=== PATIENT | female | born 1975 | race Two or more races ===

== ENCOUNTER 2017-12-16 13:15 | Emergency (ER) | payer MEDICAID ==
[2017-12-16] MEDS ORDERED: Sodium Chloride 0.9% 10 ML Syringe FLUSH PRN (13:32)
[2017-12-16] MEDS ORDERED: Ondansetron 4 MG/2 ML SDV IVPUSH ONE (13:33)
[2017-12-16] MEDS ORDERED: Sodium Chloride 0.9% 1,000 ML IV ONE (13:33)
[2017-12-16] MEDS ORDERED: HYDROmorphone 0.5 MG/0.5 ML Syringe IVPUSH ONE (13:34)
--- NOTE | 2017-12-16 14:05 | EDM.PDOC ---
ED HPI GENERAL MEDICAL PROBLEM - General Chief Complaint: Abdominal Pain Stated Complaint: ABDOMINAL/FLANK PAIN Time Seen by Provider: 12/16/17 13:35 Source of Information: Reports: Patient History Limitations: Reports: No Limitations - History of Present Illness INITIAL COMMENTS - FREE TEXT/NARRATIVE: Patient is a 42-year-old female presents ED complaining of right upper quadrant abdominal pain that radiates into her back with nausea and vomiting along with mild shortness of breath. Pain comes on when she eats. Emesis is green and mucousy. She's had a poor appetite since onset 5 days ago. Symptoms worsen last night. She has felt feverish at times. Has been no diarrhea. She has a history of gallstones diagnosed by ultrasound in [place] this past July. Patient was placed on a wait list to have the surgery. Patient moved to [place] and thus this never occurred. Patient denies any recent sick exposures. Pain to the right upper quadrant has been constant with waxing waning in intensity. She cannot get comfortable today. No history kidney stones present. She has no additional past medical history is currently taking no medications. Patient does smoke cigarettes along with marijuana. Denies any alcohol use. Denies being . Abdomen Pain Score (Numeric/FACES): 10 - Related Data Allergies Allergy/AdvReac Type Severity Reaction Status Date / Time No Known Allergies Allergy Verified 12/16/17 13:23 Home Meds: Home Meds Hydrocodone/Acetaminophen [[place] 5-325 Tablet] 1 each PO Q6H PRN #15 tablet [Rx] Ondansetron [Zofran ODT] 4 mg PO Q6H PRN #15 tab.dis 12/16/17 [Rx] Past Medical History Gastrointestinal History: Reports: GERD - Past Surgical History GI Surgical History: Reports: Appendectomy Social & Family History - Tobacco Use Smoking Status *Q: Current Every Day Smoker Years of Tobacco use: 20 Packs/Tins Daily: 0.7 - Caffeine Use Caffeine Use: Reports: Coffee, Energy Drinks, Soda, Tea - Recreational Drug Use Recreational Drug Use: No ED ROS GENERAL - Review of Systems Review Of Systems: See Below Constitutional: Reports: Fever, Malaise, Decreased Appetite HEENT: Reports: No Symptoms Respiratory: Reports: Shortness of Breath (at times) Cardiovascular: Reports: No Symptoms GI/Abdominal: Reports: Abdominal Pain, Diarrhea (at times), Flatus, Nausea, Vomiting. Denies: Constipation : Reports: No Symptoms Musculoskeletal: Reports: Back Pain (right cva) Skin: Reports: No Symptoms Neurological: Reports: No Symptoms ED EXAM, GI/ABD - Physical Exam Exam: See Below Exam Limited By: No Limitations General Appearance: Alert, WD/WN, No Apparent Distress Ears: Hearing Grossly Normal Nose: Normal Inspection Throat/Mouth: Normal Inspection, Normal Oropharynx, Normal Voice, No Airway Compromise Neck: Normal Inspection, Supple Respiratory/Chest: No Respiratory Distress, Lungs Clear, Normal Breath Sounds, No Accessory Muscle Use, Chest Non-Tender Cardiovascular: Normal Peripheral Pulses, Regular Rate, Rhythm GI/Abdominal Exam: Normal Bowel Sounds, Soft, No Organomegaly, No Distention, Tender, Other (positve patterson sign). No: Rebound Back Exam: Normal Inspection. No: CVA Tenderness (L), CVA Tenderness (R) Extremities: Normal Inspection, Non-Tender, No Pedal Edema Neurological: Alert, Oriented, CN II-XII Intact, Normal Cognition, No Motor/ Sensory Deficits Psychiatric: Normal Affect, Normal Mood Skin Exam: Warm, Dry, Intact, Normal Color Course - Vital Signs Last Recorded V/S: Last Vital Signs Temp 99.3 F 12/16/17 13:27 Pulse 100 12/16/17 13:27 Resp 20 12/16/17 13:27 BP 107/84 12/16/17 13:27 Pulse Ox 97 12/16/17 13:27 - Orders/Labs/Meds Orders: Active Orders 24 hr Category Date Time Status EKG Documentation Completion [RC] STAT Care 12/16/17 13:32 Active Peripheral IV Care [RC] . DIRECTED Care 12/16/17 13:32 Active CULTURE BLOOD [BC] Stat Lab 12/16/17 14:45 Received CULTURE BLOOD [BC] Stat Lab 12/16/17 14:55 Received Blood Culture x2 Reflex Set [OM.PC] Stat Oth 12/16/17 13:43 Ordered Peripheral IV Insertion Adult [OM.PC] Stat Oth 12/16/17 13:32 Ordered Labs: Laboratory Tests 12/16/17 12/16/17 12/16/17 Range/Units 13:50 13:50 13:50 WBC 10.76 H (3.98-10.04) K/mm3 RBC 4.91 (3.98-5.22) M/mm3 Hgb 14.1 (11.2-15.7) gm/L Hct 43.2 (34.1-44.9) % MCV 88.0 (79.4-94.8) fl MCH 28.7 (25.6-32.2) pg MCHC 32.6 (32.2-35.5) g/dl RDW Std Deviation 42.7 (36.4-46.3) fL Plt Count 343 (182-369) K/mm3 MPV 10.7 (9.4-12.3) fl Neut % (Auto) 60.0 (34.0-71.1) % Lymph % (Auto) 28.1 (19.3-51.7) % Towner % (Auto) 11.5 (4.7-12.5) % Eos % (Auto) 0.1 L (0.7-5.8) Baso % (Auto) 0.2 (0.1-1.2) % Neut # (Auto) 6.46 H (1.56-6.13) K/mm3 Lymph # (Auto) 3.02 (1.18-3.74) K/mm3 Towner # (Auto) 1.24 H (0.24-0.36) K/mm3 Eos # (Auto) 0.01 L (0.04-0.36) K/mm3 Baso # (Auto) 0.02 (0.01-0.08) K/mm3 PT (8.0-13.0) SECONDS INR APTT (22-36) SECONDS Sodium 139 (136-145) mEq/L Potassium 3.5 (3.5-5.1) mEq/L Chloride 101 (98-107) mEq/L Carbon Dioxide 23 (21-32) mEq/L Anion Gap 18.5 H (5-15) BUN 16 (7-18) mg/dL Creatinine 0.8 (0.55-1.02) mg/dL Est Cr Clr Drug Dosing 87.51 mL/min Estimated GFR (MDRD) > 60 (>60) mL/min BUN/Creatinine Ratio 20.0 H (14-18) Glucose 107 H (74-106) mg/dL Lactic Acid (0.4-2.0) mmol/L Calcium 10.2 H (8.5-10.1) mg/dL Total Bilirubin 0.6 (0.2-1.0) mg/dL Direct Bilirubin 0.10 (0.0-0.2) mg/dl GGT 22 (5-55) U/L AST 18 (15-37) U/L ALT 22 (14-59) U/L Alkaline Phosphatase 52 (46-116) U/L C-Reactive Protein 0.3 (<1.0) mg/dL Total Protein 9.0 H (6.4-8.2) g/dl Albumin 4.2 (3.4-5.0) g/dl Globulin 4.8 gm/dL Albumin/Globulin Ratio 0.9 L (1-2) Lipase 97 (73-393) U/L HCG, Qual Negative (NEGATIVE) Urine Color (Yellow) Urine Appearance (Clear) Urine pH (5.0-8.0) Ur Specific Kennedy (1.005-1.030) Urine Protein (Negative) Urine Glucose (UA) (Negative) Urine Ketones (Negative) Urine Occult Blood (Negative) Urine Nitrite (Negative) Urine Bilirubin (Negative) Urine Urobilinogen (0.2-1.0) Ur Leukocyte Esterase (Negative) Urine RBC (0-5) /hpf Urine WBC (0-5) /hpf Ur Epithelial Cells (0-5) /hpf Urine Bacteria (FEW) /hpf Urine Mucus (FEW) /hpf Urine Opiates Screen (NEGATIVE) Ur Buprenorphine Scrn (NEGATIVE) Ur Oxycodone Screen (NEGATIVE) Urine Methadone Screen (NEGATIVE) Ur Propoxyphene Screen (NEGATIVE) Ur Barbiturates Screen (NEGATIVE) Ur Tricyclics Screen (NEGATIVE) Ur Phencyclidine Scrn (NEGATIVE) Ur Amphetamine Screen (NEGATIVE) U Methamphetamines Scrn (NEGATIVE) U Benzodiazepines Scrn (NEGATIVE) U Cocaine Metab Screen (NEGATIVE) U Marijuana (THC) Screen (NEGATIVE) 12/16/17 12/16/17 12/16/17 Range/Units 13:50 14:45 15:25 WBC (3.98-10.04) K/mm3 RBC (3.98-5.22) M/mm3 Hgb (11.2-15.7) gm/L Hct (34.1-44.9) % MCV (79.4-94.8) fl MCH (25.6-32.2) pg MCHC (32.2-35.5) g/dl RDW Std Deviation (36.4-46.3) fL Plt Count (182-369) K/mm3 MPV (9.4-12.3) fl Neut % (Auto) (34.0-71.1) % Lymph % (Auto) (19.3-51.7) % Towner % (Auto) (4.7-12.5) % Eos % (Auto) (0.7-5.8) Baso % (Auto) (0.1-1.2) % Neut # (Auto) (1.56-6.13) K/mm3 Lymph # (Auto) (1.18-3.74) K/mm3 Towner # (Auto) (0.24-0.36) K/mm3 Eos # (Auto) (0.04-0.36) K/mm3 Baso # (Auto) (0.01-0.08) K/mm3 PT 10.6 (8.0-13.0) SECONDS INR 0.97 APTT 26 (22-36) SECONDS Sodium (136-145) mEq/L Potassium (3.5-5.1) mEq/L Chloride (98-107) mEq/L Carbon Dioxide (21-32) mEq/L Anion Gap (5-15) BUN (7-18) mg/dL Creatinine (0.55-1.02) mg/dL Est Cr Clr Drug Dosing mL/min Estimated GFR (MDRD) (>60) mL/min BUN/Creatinine Ratio (14-18) Glucose (74-106) mg/dL Lactic Acid 0.7 (0.4-2.0) mmol/L Calcium (8.5-10.1) mg/dL Total Bilirubin (0.2-1.0) mg/dL Direct Bilirubin (0.0-0.2) mg/dl GGT (5-55) U/L AST (15-37) U/L ALT (14-59) U/L Alkaline Phosphatase (46-116) U/L C-Reactive Protein (<1.0) mg/dL Total Protein (6.4-8.2) g/dl Albumin (3.4-5.0) g/dl Globulin gm/dL Albumin/Globulin Ratio (1-2) Lipase (73-393) U/L HCG, Qual (NEGATIVE) Urine Color Dark yellow (Yellow) Urine Appearance Clear (Clear) Urine pH 5.5 (5.0-8.0) Ur Specific Kennedy > or = 1.030 (1.005-1.030) Urine Protein 1+ H (Negative) Urine Glucose (UA) Negative (Negative) Urine Ketones 2+ H (Negative) Urine Occult Blood Negative (Negative) Urine Nitrite Negative (Negative) Urine Bilirubin 1+ H (Negative) Urine Urobilinogen 0.2 (0.2-1.0) Ur Leukocyte Esterase Negative (Negative) Urine RBC Not seen (0-5) /hpf Urine WBC 0-5 (0-5) /hpf Ur Epithelial Cells 0-5 (0-5) /hpf Urine Bacteria Rare (FEW) /hpf Urine Mucus Many H (FEW) /hpf Urine Opiates Screen (NEGATIVE) Ur Buprenorphine Scrn (NEGATIVE) Ur Oxycodone Screen (NEGATIVE) Urine Methadone Screen (NEGATIVE) Ur Propoxyphene Screen (NEGATIVE) Ur Barbiturates Screen (NEGATIVE) Ur Tricyclics Screen (NEGATIVE) Ur Phencyclidine Scrn (NEGATIVE) Ur Amphetamine Screen (NEGATIVE) U Methamphetamines Scrn (NEGATIVE) U Benzodiazepines Scrn (NEGATIVE) U Cocaine Metab Screen (NEGATIVE) U Marijuana (THC) Screen (NEGATIVE) 12/16/17 Range/Units 15:25 WBC (3.98-10.04) K/mm3 RBC (3.98-5.22) M/mm3 Hgb (11.2-15.7) gm/L Hct (34.1-44.9) % MCV (79.4-94.8) fl MCH (25.6-32.2) pg MCHC (32.2-35.5) g/dl RDW Std Deviation (36.4-46.3) fL Plt Count (182-369) K/mm3 MPV (9.4-12.3) fl Neut % (Auto) (34.0-71.1) % Lymph % (Auto) (19.3-51.7) % Towner % (Auto) (4.7-12.5) % Eos % (Auto) (0.7-5.8) Baso % (Auto) (0.1-1.2) % Neut # (Auto) (1.56-6.13) K/mm3 Lymph # (Auto) (1.18-3.74) K/mm3 Towner # (Auto) (0.24-0.36) K/mm3 Eos # (Auto) (0.04-0.36) K/mm3 Baso # (Auto) (0.01-0.08) K/mm3 PT (8.0-13.0) SECONDS INR APTT (22-36) SECONDS Sodium (136-145) mEq/L Potassium (3.5-5.1) mEq/L Chloride (98-107) mEq/L Carbon Dioxide (21-32) mEq/L Anion Gap (5-15) BUN (7-18) mg/dL Creatinine (0.55-1.02) mg/dL Est Cr Clr Drug Dosing mL/min Estimated GFR (MDRD) (>60) mL/min BUN/Creatinine Ratio (14-18) Glucose (74-106) mg/dL Lactic Acid (0.4-2.0) mmol/L Calcium (8.5-10.1) mg/dL Total Bilirubin (0.2-1.0) mg/dL Direct Bilirubin (0.0-0.2) mg/dl GGT (5-55) U/L AST (15-37) U/L ALT (14-59) U/L Alkaline Phosphatase (46-116) U/L C-Reactive Protein (<1.0) mg/dL Total Protein (6.4-8.2) g/dl Albumin (3.4-5.0) g/dl Globulin gm/dL Albumin/Globulin Ratio (1-2) Lipase (73-393) U/L HCG, Qual (NEGATIVE) Urine Color (Yellow) Urine Appearance (Clear) Urine pH (5.0-8.0) Ur Specific Kennedy (1.005-1.030) Urine Protein (Negative) Urine Glucose (UA) (Negative) Urine Ketones (Negative) Urine Occult Blood (Negative) Urine Nitrite (Negative) Urine Bilirubin (Negative) Urine Urobilinogen (0.2-1.0) Ur Leukocyte Esterase (Negative) Urine RBC (0-5) /hpf Urine WBC (0-5) /hpf Ur Epithelial Cells (0-5) /hpf Urine Bacteria (FEW) /hpf Urine Mucus (FEW) /hpf Urine Opiates Screen Presumptive positive H (NEGATIVE) Ur Buprenorphine Scrn Negative (NEGATIVE) Ur Oxycodone Screen Negative (NEGATIVE) Urine Methadone Screen Negative (NEGATIVE) Ur Propoxyphene Screen Negative (NEGATIVE) Ur Barbiturates Screen Negative (NEGATIVE) Ur Tricyclics Screen Negative (NEGATIVE) Ur Phencyclidine Scrn Negative (NEGATIVE) Ur Amphetamine Screen Negative (NEGATIVE) U Methamphetamines Scrn Negative (NEGATIVE) U Benzodiazepines Scrn Negative (NEGATIVE) U Cocaine Metab Screen Negative (NEGATIVE) U Marijuana (THC) Screen Presumptive positive H (NEGATIVE) Meds: Medications Discontinued Medications Generic Name Dose Route Start Last Admin Trade Name Freq PRN Reason Stop Dose Admin Hydromorphone HCl 0.5 mg 12/16/17 13:34 12/16/17 13:50 Dilaudid IVPUSH 12/16/17 13:35 0.5 mg ONETIME ONE Administration Sodium Chloride 1,000 mls @ 999 mls/hr 12/16/17 13:33 12/16/17 13:49 Normal Saline IV 12/16/17 14:33 999 mls/hr ONETIME ONE Administration Ondansetron HCl 4 mg 12/16/17 13:33 12/16/17 13:49 Zofran IVPUSH 12/16/17 13:34 4 mg ONETIME ONE Administration Ondansetron HCl 4 mg 12/16/17 15:27 12/16/17 15:32 Zofran Odt PO 12/16/17 15:28 4 mg ONETIME ONE Administration Sodium Chloride 10 ml 12/16/17 13:32 12/16/17 13:49 Saline Flush FLUSH 10 ml ASDIRECTED PRN Administration Keep Vein Open - Re-Assessments/Exams Free Text/Narrative Re-Assessment/Exam: Order peripheral IV with normal saline, Dilaudid 0.5 mg IVP, and Zofran 4 mg IVP. Initial labs and studies include CBC, chem 14, CRP, direct bilirubin, GGT, hCG, coag studies, lactic acid, lipase, urine drug tox, UA, EKG, chest x-ray, 2 view of the abdomen, and blood cultures 2. Xray of the chest and abdomen did not reveal any acute findings. Final interpretation is pending. Reviewed with Dr. Gómez. EKG sinus rhythm rate of [address] changes noted. Labs reviewed: White blood cell count mildly elevated 10.76 with no neutrophilia. Hemoglobin 14.1, platelet count 343, chemistry panel is essentially normal. CRP 0.3. LFTs are within normal limits. GTT and draped bilirubin as well as total bilirubin within normal limits. Lipase 97. HCG negative. UA and urine drug tox pending. Lactic acid 0.7. [address] Pizarro [employer] General Surgeon. He will see the patient 12/20. We are attempting to schedule an appt. Once UA sample has been provided will discharge patient home with instructions. Will notify if any abnormal results present. UA negative for infection. Urine drug tox positive for opiates and THC. Departure - Departure Time of Disposition: 15:16 Disposition: Home, Self-Care 01 Condition: Good Clinical Impression: Cholecystitis Abdominal pain Qualifiers: Abdominal location: right upper quadrant Qualified Code(s): R10.11 - Right upper quadrant pain - Discharge Information Prescriptions: Hydrocodone/Acetaminophen [[place] 5-325 Tablet] 1 each PO Q6H PRN #15 tablet PRN Reason: Pain (Severe 7-10) Ondansetron [Zofran ODT] 4 mg PO Q6H PRN #15 tab.dis PRN Reason: Nausea Instructions: Nausea and Vomiting, Adult, [id number], Abdominal Pain, Adult, [id number], Pain Medicine Instructions, [id number] Referrals: Aj Pizarro MD [Physician] - Forms: ED Department Discharge, ED Return to Work/School Form Additional Instructions: As discussed will have you follow-up with Dr. Pizarro on-call general surgeon this coming Wednesday for further evaluation for gallbladder removal. He had a large gallstone with a slightly prominent, bile duct. History and examination concerning for acute cholecystitis. Treatment at this point will be a low residue diet. Refrain from fatty foods and green leafy foods or other foods that are causing aggravation. Utilize Zofran 4 mg ODT every 6 hours as needed for nausea and vomiting. For severe pain take [place] one tab every 6 hours as needed. No driving this evening since receiving a sedative medication while in the ED. No driving while taking the [place]. Return to the ED if you develop any new or worsening symptoms. Appointment with Dr. Pizarro is scheduled for Wednesday12/20/2017 at 1:45 p.m. We have discharged you from the E.D without UA results. If results determine further treatment or testing is required you will be notified. - My Orders Last 24 Hours: My Active Orders 12/16/17 13:32 EKG Documentation Completion [RC] STAT Peripheral IV Care [RC] . DIRECTED Peripheral IV Insertion Adult [OM.PC] Stat 12/16/17 13:43 Blood Culture x2 Reflex Set [OM.PC] Stat 12/16/17 14:45 CULTURE BLOOD [BC] Stat 12/16/17 14:55 CULTURE BLOOD [BC] Stat - Assessment/Plan Last 24 Hours: My Active Orders 12/16/17 13:32 EKG Documentation Completion [RC] STAT Peripheral IV Care [RC] . DIRECTED Peripheral IV Insertion Adult [OM.PC] Stat 12/16/17 13:43 Blood Culture x2 Reflex Set [OM.PC] Stat 12/16/17 14:45 CULTURE BLOOD [BC] Stat 12/16/17 14:55 CULTURE BLOOD [BC] Stat
--- NOTE | 2017-12-16 14:16 | CR ---
Abdominal series: Supine and upright views of the abdomen were obtained as well as frontal view of the chest. Comparison: No prior study. Heart size and mediastinum are normal. Lungs are clear. Bowel gas pattern appears normal. Surgical clips are seen within the pelvis. No free air seen. Bony structures are within normal limits for the patient's age. Impression: 1. Nothing acute seen on frontal checks x-ray or on 2 view abdominal x-ray. Diagnostic code #2
--- NOTE | 2017-12-16 15:06 | US ---
Limited abdominal ultrasound: Multiple real-time images were obtained. Compare no prior abdominal imaging. Findings: Liver shows no focal parenchymal abnormality. Large gallstone is seen within the gallbladder measuring 3.3 cm. No gallbladder wall thickening is seen. Common bile duct slightly prominent at 7.4 mm but no intraluminal defects are seen within the visualized CBD. Pancreas is within normal limits. Inferior vena cava is patent. Portal vein shows normal hepatopedal flow. Right kidney shows no hydronephrosis or mass with length of 9.8 cm. Impression: 1. Large gallstone. 2. Slightly prominent common bile duct is 7.4 mm of uncertain significance. 3. Other portions of the right upper quadrant abdominal ultrasound are unremarkable. Diagnostic code #3
[2017-12-16] MEDS ORDERED: Ondansetron 4 MG Tab.DIS PO ONE (15:27)
== END 2017-12-16 15:52 | disposition home or self-care (01) ==
LOC: JD.ED 13:15
DX: K80.10 Calculus of gallbladder with chronic cholecystitis without obstruction (principal); F17.210 Nicotine dependence, cigarettes, uncomplicated
CPT/HCPCS: 36415; 74022; 76705; 80053; 80306; 81001; 82248; 82977; 83605; 83690; 84703; 85025; 85610; 85730; 86140; 87040; 93005; 96361; 96374; 96375; 99285; A9270; J1170; J2405; J7040; J7050; 93010; 99284-25

== ENCOUNTER 2017-12-21 18:42 | Inpatient (IN) | payer MEDICAID ==
[2017-12-21] MEDS ORDERED: HYDROmorphone 1 MG/ML Syringe IVPUSH ONE (19:08)
[2017-12-21] MEDS ORDERED: Ondansetron 4 MG/2 ML SDV IVPUSH ONE (19:08)
--- NOTE | 2017-12-21 19:16 | EDM.PDOC ---
ED HPI GENERAL MEDICAL PROBLEM - General Chief Complaint: Abdominal Pain Stated Complaint: nausea abdominal pain Time Seen by Provider: 12/21/17 18:52 Source of Information: Reports: Patient, Old Records History Limitations: Reports: No Limitations - History of Present Illness INITIAL COMMENTS - FREE TEXT/NARRATIVE: Medical records indicate that the patient was seen in this ED on 12/16/2017 with a complaint of right upper quadrant abdominal pain that radiated into her back, along with nausea, vomiting, and shortness of breath. The pain would come on whenever she ate. At the time, she indicates that she had a history of gallstones, diagnosed by an ultrasound in [place] this past July 2017. She stated that she had been placed on a wait list at surgery, but then moved to [place]. Workup in the ED on 12/16/2017 include a CBC, CMP, CRP, lactic acid level, coags , 2 sets of blood cultures, urinalysis, urine test, urine drug screen , radiographs of the chest and abdomen, an ultrasound of the right upper quadrant, and an ECG. The ultrasound demonstrated a 3.3 cm gallstone within the gallbladder, but no gallbladder wall thickening. The common bile duct was slightly prominent at 7.4 mm, of uncertain significance. The patient's urine drug screen was positive for opiates and marijuana. The remainder of her workup was unremarkable. She was discharged home with prescriptions for [place] and Zofran. The patient then followed up with Dr. Pizarro yesterday, 12/20/2017. According to the patient, he offered to take the patient to the operating room tomorrow, however, the patient refused, stating that she had orientation at a new job. Cholecystectomy was then scheduled for this coming 12/24/2017. The patient now returns to the ED stating that she redeveloped right upper quadrant abdominal pain shortly after eating lunch today, then developed nausea and vomiting about 2 hours later. The patient is unable to describe the character of the pain. It is not modifiable. She states that the emesis is unremitting despite taking Zofran, and her pain is uncontrolled, because she cannot hold down the [place]. Right Upper Abdominal Pain Score (Numeric/FACES): 10 - Related Data Allergies Allergy/AdvReac Type Severity Reaction Status Date / Time No Known Allergies Allergy Verified 12/16/17 13:23 Home Meds: Home Meds Hydrocodone/Acetaminophen [[place] 5-325 Tablet] 1 each PO Q6H PRN #15 tablet [Rx] Ondansetron [Zofran ODT] 4 mg PO Q6H PRN #15 tab.dis 12/16/17 [Rx] Past Medical History Gastrointestinal History: Reports: Cholelithiasis - Past Surgical History HEENT Surgical History: Reports: Oral Surgery ([place] teeth extraction) GI Surgical History: Reports: Appendectomy Female Surgical History: Reports: Tubal Ligation Social & Family History - Tobacco Use Smoking Status *Q: Current Every Day Smoker Years of Tobacco use: 25 Packs/Tins Daily: 1 - Caffeine Use Caffeine Use: Reports: Coffee, Soda - Alcohol Use Alcohol Use History: Yes Alcohol Use Frequency: Socially - Recreational Drug Use Recreational Drug Use: Yes Drug Use in Last 12 Months: Yes Recreational Drug Type: Reports: Marijuana/Hashish (occasionally) - Living Situation & Occupation Living situation: Reports: , with Spouse, with Family (2 kids) Occupation: Employed ([employer]) ED ROS GENERAL - Review of Systems Review Of Systems: ROS reveals no pertinent complaints other than HPI. ED EXAM, GI/ABD - Physical Exam Exam: See Below Exam Limited By: No Limitations General Appearance: Alert, WD/WN, Moderate Distress (Frequent retching, complaining of pain) Eyes: Bilateral: Normal Appearance, EOMI Ears: Normal External Exam, Hearing Grossly Normal Nose: Normal Inspection, No Blood Throat/Mouth: Normal Inspection, Normal Lips, Normal Voice, No Airway Compromise Head: Atraumatic, Normocephalic Neck: Normal Inspection, Full Range of Motion Respiratory/Chest: No Respiratory Distress, Lungs Clear, Normal Breath Sounds, No Accessory Muscle Use Cardiovascular: Normal Peripheral Pulses, Regular Rate, Rhythm, No Gallop, No JVD, No Murmur, No Rub GI/Abdominal Exam: Normal Bowel Sounds, Soft, No Organomegaly, No Distention, No Abnormal Bruit, No Mass, Pelvis Stable, Tender (RUQ only. Nontender elsewhere , although palpation on the left side of the abdomen induces some pain to the right upper quadrant. Ramos's sign is negative.) (Female) Exam: Deferred Rectal (Female) Exam: Deferred Back Exam: Normal Inspection, Full Range of Motion. No: CVA Tenderness (L), CVA Tenderness (R) Extremities: Normal Inspection, Normal Range of Motion, No Pedal Edema, Normal Capillary Refill Neurological: Alert, Oriented, Normal Cognition, No Motor/Sensory Deficits Psychiatric: Normal Affect Skin Exam: Warm, Dry, Intact, Normal Color, No Rash Course - Vital Signs Last Recorded V/S: Last Vital Signs Temp 36.1 C 12/21/17 20:37 Pulse 79 12/21/17 20:37 Resp 12 12/21/17 20:37 BP 137/90 12/21/17 20:37 Pulse Ox 100 12/21/17 20:37 - Orders/Labs/Meds Orders: Active Orders 24 hr Category Date Time Status Sodium Chloride 0.9% [Normal Saline] 1,000 ml Med 12/21/17 19:15 Active IV ASDIRECTED Medication Orders Hydromorphone HCl (Dilaudid) 1 mg IVPUSH Q1H PRN PRN Reason: Pain Last Admin: 12/21/17 20:47 Dose: 1 mg Sodium Chloride (Normal Saline) 1,000 mls @ 150 mls/hr IV ASDIRECTED CARLA Last Admin: 12/21/17 19:21 Dose: 150 mls/hr Labs: Laboratory Tests 12/21/17 12/21/17 Range/Units 19:10 19:10 WBC 10.07 H (3.98-10.04) K/mm3 RBC 4.54 (3.98-5.22) M/mm3 Hgb 13.3 (11.2-15.7) gm/L Hct 40.3 (34.1-44.9) % MCV 88.8 (79.4-94.8) fl MCH 29.3 (25.6-32.2) pg MCHC 33.0 (32.2-35.5) g/dl RDW Std Deviation 42.4 (36.4-46.3) fL Plt Count 325 (182-369) K/mm3 MPV 10.5 (9.4-12.3) fl Neutrophils % (Manual) 70 H (40-60) % Band Neutrophils % 0 (0-10) % Lymphocytes % (Manual) 30 (20-40) % Atypical Lymphs % 0 % Monocytes % (Manual) 0 L (2-10) % Eosinophils % (Manual) 0 L (0.7-5.8) % Basophils % (Manual) 0 L (0.1-1.2) Platelet Estimate Adequate RBC Morph Comment Normal Sodium 141 (136-145) mEq/L Potassium 3.7 (3.5-5.1) mEq/L Chloride 103 (98-107) mEq/L Carbon Dioxide 26 (21-32) mEq/L Anion Gap 15.7 H (5-15) BUN 7 (7-18) mg/dL Creatinine 0.9 (0.55-1.02) mg/dL Est Cr Clr Drug Dosing 77.79 mL/min Estimated GFR (MDRD) > 60 (>60) mL/min BUN/Creatinine Ratio 7.8 L (14-18) Glucose 112 H (74-106) mg/dL Calcium 9.4 (8.5-10.1) mg/dL Total Bilirubin 0.4 (0.2-1.0) mg/dL AST 17 (15-37) U/L ALT 21 (14-59) U/L Alkaline Phosphatase 50 (46-116) U/L Total Protein 8.4 H (6.4-8.2) g/dl Albumin 4.0 (3.4-5.0) g/dl Globulin 4.4 gm/dL Albumin/Globulin Ratio 0.9 L (1-2) Meds: Medications Generic Name Dose Route Start Last Admin Trade Name Freq PRN Reason Stop Dose Admin Hydromorphone HCl 1 mg 12/21/17 20:40 12/21/17 20:47 Dilaudid IVPUSH 1 mg Q1H PRN Administration Pain Sodium Chloride 1,000 mls @ 150 mls/hr 12/21/17 19:15 12/21/17 19:21 Normal Saline IV 150 mls/hr ASDIRECTED CARLA Administration Discontinued Medications Generic Name Dose Route Start Last Admin Trade Name Freq PRN Reason Stop Dose Admin Hydromorphone HCl 1 mg 12/21/17 19:08 12/21/17 19:16 Dilaudid IVPUSH 12/21/17 19:09 1 mg ONETIME ONE Administration Hydromorphone HCl Confirm 12/21/17 20:39 Dilaudid Administered 12/21/17 20:40 Dose 1 mg .ROUTE .STK-MED ONE Ondansetron HCl 4 mg 12/21/17 19:08 01/23/18 19:15 Zofran IVPUSH 12/21/17 19:09 4 mg ONETIME ONE Administration - Re-Assessments/Exams Free Text/Narrative Re-Assessment/Exam: 12/21/17 19:[address] Pizarro at 19:08. I proposed that we get the patient's pain and emesis under control and admit her, so that she can be put on the operative schedule. Dr. Pizarro agrees. I am going to order a CBC and CMP, just to make sure that nothing has gone askew since she was last here on 12/16/2017 - Dr. Pizarro said that he does not need any other labs. Departure - Departure Time of Disposition: 19:12 Disposition: Admitted As Inpatient 68 Condition: Fair Clinical Impression: Acute cholecystitis, Nausea & vomiting - Discharge Information - My Orders Last 24 Hours: My Active Orders 12/21/17 19:15 Sodium Chloride 0.9% [Normal Saline] 1,000 ml IV ASDIRECTED - Assessment/Plan Last 24 Hours: My Active Orders 12/21/17 19:15 Sodium Chloride 0.9% [Normal Saline] 1,000 ml IV ASDIRECTED
[2017-12-21] MEDS: Sodium Chloride 0.9% 1,000 ML IV SCH (19:21)
[2017-12-21] MEDS ORDERED: HYDROmorphone 1 MG/ML Syringe ONE (20:39)
[2017-12-21] MEDS: HYDROmorphone 1 MG/ML Syringe IVPUSH PRN ×3 (20:47→23:52)
[2017-12-21] MEDS: Ondansetron 4 MG/2 ML SDV IVPUSH PRN (23:52)
[2017-12-22] MEDS: Sodium Chloride 0.9% 1,000 ML IV SCH ×2 (06:04→09:21)
[2017-12-22] MEDS: HYDROmorphone 1 MG/ML Syringe IVPUSH PRN ×6 (06:05→10:09)
[2017-12-22] MEDS: Ondansetron 4 MG/2 ML SDV IVPUSH PRN ×2 (06:09→10:05)
[2017-12-22] MEDS ORDERED: Nicotine 21 MG/24 Hr Patch TRDERM SCH (09:00)
--- NOTE | 2017-12-22 09:43 | PCM.PREANE ---
Preanesthetic Assessment - Anesthesia/Transfusion/Family Hx Anesthesia History: Prior Anesthesia Without Reaction Family History of Anesthesia Reaction: No Transfusion History: No Prior Transfusion(s) - Review of Systems General: Fever (a few days ago with episode) Pulmonary: Shortness of Breath (from throwing up when has episode) Cardiovascular: No Symptoms Gastrointestinal: Abdominal Pain (upper right), Nausea, Vomiting Neurological: No Symptoms Other: Reports: Anxiety - Physical Assessment NPO Status Date: 12/21/17 NPO Status Time: 12:00 Pulse: 64 O2 Sat by Pulse Oximetry: 97 Respiratory Rate: 16 Blood Pressure: 108/81 Temperature: 97.9 F Vital Signs: Last Vital Signs Temp 97.9 F 12/22/17 07:47 Pulse 64 12/22/17 07:47 Resp 16 12/22/17 07:47 BP 108/81 12/22/17 07:47 Pulse Ox 97 12/22/17 07:47 Height: 5 ft 6 in Weight: 67.495 kg ASA Class: 2 Mental Status: Alert & Oriented x3 Airway Class: Mallampati = 2 Dentition: Reports: Normal Dentition Thyro-Mental Finger Breadths: 3 Mouth Opening Finger Breadths: 3 ROM/Head Extension: Full Lungs: Clear to Auscultation, Normal Respiratory Effort Cardiovascular: Regular Rate, Regular Rhythm - Lab Values: Laboratory Last Values WBC 10.07 K/mm3 (3.98-10.04) H 12/21/17 19:10 RBC 4.54 M/mm3 (3.98-5.22) 12/21/17 19:10 Hgb 13.3 gm/L (11.2-15.7) 12/21/17 19:10 Hct 40.3 % (34.1-44.9) 12/21/17 19:10 MCV 88.8 fl (79.4-94.8) 12/21/17 19:10 MCH 29.3 pg (25.6-32.2) 12/21/17 19:10 MCHC 33.0 g/dl (32.2-35.5) 12/21/17 19:10 RDW Std Deviation 42.4 fL (36.4-46.3) 12/21/17 19:10 Plt Count 325 K/mm3 (182-369) 12/21/17 19:10 MPV 10.5 fl (9.4-12.3) 12/21/17 19:10 Neutrophils % (Manual) 70 % (40-60) H 12/21/17 19:10 Band Neutrophils % 0 % (0-10) 12/21/17 19:10 Lymphocytes % (Manual) 30 % (20-40) 12/21/17 19:10 Atypical Lymphs % 0 % 12/21/17 19:10 Monocytes % (Manual) 0 % (2-10) L 12/21/17 19:10 Eosinophils % (Manual) 0 % (0.7-5.8) L 12/21/17 19:10 Basophils % (Manual) 0 (0.1-1.2) L 12/21/17 19:10 Platelet Estimate Adequate 12/21/17 19:10 RBC Morph Comment Normal 12/21/17 19:10 Sodium 141 mEq/L (136-145) 12/21/17 19:10 Potassium 3.7 mEq/L (3.5-5.1) 12/21/17 19:10 Chloride 103 mEq/L (98-107) 12/21/17 19:10 Carbon Dioxide 26 mEq/L (21-32) 12/21/17 19:10 Anion Gap 15.7 (5-15) H 12/21/17 19:10 BUN 7 mg/dL (7-18) 12/21/17 19:10 Creatinine 0.9 mg/dL (0.55-1.02) 12/21/17 19:10 Est Cr Clr Drug Dosing 77.79 mL/min 12/21/17 19:10 Estimated GFR (MDRD) > 60 mL/min (>60) 12/21/17 19:10 BUN/Creatinine Ratio 7.8 (14-18) L 12/21/17 19:10 Glucose 112 mg/dL (74-106) H 12/21/17 19:10 Calcium 9.4 mg/dL (8.5-10.1) 12/21/17 19:10 Total Bilirubin 0.4 mg/dL (0.2-1.0) 12/21/17 19:10 AST 17 U/L (15-37) 12/21/17 19:10 ALT 21 U/L (14-59) 12/21/17 19:10 Alkaline Phosphatase 50 U/L (46-116) 12/21/17 19:10 Total Protein 8.4 g/dl (6.4-8.2) H 12/21/17 19:10 Albumin 4.0 g/dl (3.4-5.0) 12/21/17 19:10 Globulin 4.4 gm/dL 12/21/17 19:10 Albumin/Globulin Ratio 0.9 (1-2) L 12/21/17 19:10 Patient states she is not as she has a tubal-refuses test at this time. - Allergies Allergies/Adverse Reactions: Allergies Allergy/AdvReac Type Severity Reaction Status Date / Time No Known Allergies Allergy Verified 12/16/17 13:23 - Blood Blood Available: No - Acknowledgements Anesthesia Type Planned: General Anesthesia Pt an Appropriate Candidate for the Planned Anesthesia: Yes Alternatives and Risks of Anesthesia Discussed w Pt/Guardian: Yes Pt/Guardian Understands and Agrees with Anesthesia Plan: Yes PreAnesthesia Questionnaire Cardiovascular History: Reports: None Respiratory History: Reports: None Gastrointestinal History: Reports: Cholelithiasis Oncologic (Cancer) History: Reports: None - Past Surgical History HEENT Surgical History: Reports: Oral Surgery ([place] teeth extraction) GI Surgical History: Reports: Appendectomy Female Surgical History: Reports: Tubal Ligation - SUBSTANCE USE Smoking Status *Q: Current Every Day Smoker Tobacco Use Within Last Twelve Months: Cigarettes Second Hand Smoke Exposure: Yes Days Per Week of Alcohol Use: 1 (holidays) Recreational Drug Use History: Yes Recreational Drug Type: Reports: Marijuana/Hashish (last used occasionally) - HOME MEDS Home Medications: Home Meds Hydrocodone/Acetaminophen [[place] 5-325 Tablet] 1 each PO Q6H PRN #15 tablet [Rx] Ondansetron [Zofran ODT] 4 mg PO Q6H PRN #15 tab.dis 12/16/17 [Rx] - CURRENT (IN HOUSE) MEDS Current Meds: Current Medications Hydromorphone HCl (Dilaudid) 1 mg IVPUSH Q1H PRN PRN Reason: Pain Last Admin: 12/22/17 09:07 Dose: 1 mg Sodium Chloride (Normal Saline) 1,000 mls @ 150 mls/hr IV ASDIRECTED CARLA Last Admin: 12/22/17 09:21 Dose: 150 mls/hr Miscellaneous Information (Remove Patch) 0 ea TRDERM DAILY CARLA Nicotine (Habitrol) 21 mg TRDERM DAILY CARLA Last Admin: 12/22/17 09:08 Dose: 21 mg Ondansetron HCl (Zofran) 4 mg IVPUSH Q4HR PRN PRN Reason: Nausea/Vomiting Last Admin: 12/22/17 06:09 Dose: 4 mg Discontinued Medications Hydromorphone HCl (Dilaudid) 1 mg IVPUSH ONETIME ONE Stop: 12/21/17 19:09 Last Admin: 12/21/17 19:16 Dose: 1 mg Hydromorphone HCl (Dilaudid) Confirm Administered Dose 1 mg .ROUTE .STK-MED ONE Stop: 12/21/17 20:40 Last Admin: 12/21/17 21:54 Dose: Not Given Ondansetron HCl (Zofran) 4 mg IVPUSH ONETIME ONE Stop: 12/21/17 19:09 Last Admin: 12/21/17 19:15 Dose: 4 mg
[2017-12-22] MEDS ORDERED: Iopamidol 612 MG/ML 50 ML SDV ONE (10:43)
[2017-12-22] MEDS ORDERED: Sodium Chloride 0.9% 50 ML SDV ONE (10:44)
[2017-12-22] MEDS ORDERED: Bupivacaine 0.5% 30 ML SDV ONE (10:44)
[2017-12-22] MEDS ORDERED: Propofol 200 MG/20 ML SDV ONE (13:16)
[2017-12-22] MEDS ORDERED: Rocuronium 50 MG/5 ML Vial ONE (13:16)
[2017-12-22] MEDS ORDERED: Lidocaine 1% 4 ML ONE (13:16)
[2017-12-22] MEDS ORDERED: Ondansetron 4 MG/2 ML SDV ONE (13:16)
[2017-12-22] MEDS ORDERED: Midazolam 1 MG/ML 2 ML SDV ONE (13:16)
[2017-12-22] MEDS ORDERED: Dexamethasone 4 MG/ML 5 ML MDV ONE (13:16)
[2017-12-22] MEDS ORDERED: fentaNYL 250 MCG/5 ML SDV ONE (13:16)
[2017-12-22] MEDS ORDERED: Lactated Ringers 1,000 ML ONE ×2 (13:19→15:26)
[2017-12-22] MEDS ORDERED: ceFAZolin 1 GM Vial ONE (13:54)
[2017-12-22] MEDS ORDERED: Ketamine 500 mg/10 ML MDV ONE (13:56)
[2017-12-22] MEDS ORDERED: HYDROmorphone 1 MG/ML Syringe ONE (13:57)
[2017-12-22] MEDS ORDERED: Meperidine PF 50 MG/ML Syringe IVPUSH PRN (15:02)
[2017-12-22] MEDS ORDERED: fentaNYL 100 MCG/2 ML SDV IVPUSH PRN (15:02)
[2017-12-22] MEDS ORDERED: Ondansetron 4 MG/2 ML SDV IVPUSH PRN ×3 (15:02→17:10)
--- NOTE | 2017-12-22 15:16 | CR ---
Operative cholangiogram Multiple fluoroscopic spot views were obtained utilizing C-arm device. Opacification CHD and CBD are noted. Contrast extends into the duodenum. No filling defects are seen to indicate retained stone. Impression: 1. No abnormality is seen on operative cholangiogram study. Diagnostic code #1
[2017-12-22] MEDS ORDERED: Neostigmine Methylsulfate 1 MG/ML 5 ML Syringe ONE (15:28)
[2017-12-22] MEDS ORDERED: Ketorolac 30 MG/ML SDV ONE (15:53)
[2017-12-22] MEDS ORDERED: Meperidine PF 50 MG/ML Syringe ONE (15:53)
[2017-12-22] MEDS ORDERED: Metoclopramide 10 MG/2 ML SDV ONE (15:53)
--- NOTE | 2017-12-22 15:54 | PCM.OPNOTE ---
- General Post-Op/Procedure Note Date of Surgery/Procedure: 12/22/17 Operative Procedure(s): lap nhi with IOC Pre Op Diagnosis: cholecystitis/cholelithiasis Post-Op Diagnosis: Same Anesthesia Technique: General ET Tube Primary Surgeon: Aj Pizarro EBL in mLs: 50 Complications: None Condition: Good Free Text/Narrative:: Intake & Output 12/21/17 12/22/17 12/22/17 23:59 07:59 15:59 Intake Total 0 Balance 0
--- NOTE | 2017-12-22 16:03 | PCM.POSTAN ---
POST ANESTHESIA ASSESSMENT - MENTAL STATUS Mental Status: Alert, Oriented - VITAL SIGNS Pulse Rate: 114 SaO2: 96 Resp Rate: 16 Blood Pressure: 118/84 Temperature: 97.7 F - RESPIRATORY Respiratory Status: Respiratory Rate WNL, Airway Patent, O2 Saturation Stable, Supplemental Oxygen - CARDIOVASCULAR CV Status: Pulse Rate WNL, Blood Pressure Stable - GASTROINTESTINAL GI Status: No Symptoms - PAIN Pain Score: 5 - POST OP HYDRATION Hydration Status: Adequate & Stable - OBSERVATIONS Free Text/Narrative:: has the shakes- demerol IV given.
[2017-12-22] MEDS ORDERED: Ketorolac 30 MG/ML SDV IVPUSH PRN (16:04)
[2017-12-22] MEDS ORDERED: Acetaminophen/HYDROcodone 325-5 MG Tab PO PRN (16:05)
[2017-12-22] MEDS ORDERED: Lactated Ringers 1,000 ML IV SCH (17:10)
[2017-12-22] MEDS: Acetaminophen/HYDROcodone 325-5 MG Tab PO PRN (18:48)
[2017-12-22] MEDS: Ketorolac 30 MG/ML SDV IVPUSH PRN (18:49)
[2017-12-23] MEDS: Ketorolac 30 MG/ML SDV IVPUSH PRN ×2 (00:11→06:11)
[2017-12-23] MEDS: Acetaminophen/HYDROcodone 325-5 MG Tab PO PRN ×2 (01:53→09:16)
--- NOTE | 2017-12-23 06:43 | OR ---
DATE OF OPERATION: 12/22/2017 SURGEON: Aj Pizarro MD PREOPERATIVE DIAGNOSIS: Cholecystitis, cholelithiasis. POSTOPERATIVE DIAGNOSIS: Cholecystitis, cholelithiasis. OPERATION PERFORMED: Laparoscopic cholecystectomy, intraoperative cholangiogram, and lysis of adhesions. FINDINGS: Acutely distended gallbladder, hydrops of the gallbladder in fact with obstruction of the cystic duct with large stone and adhesions around the fundus and a very thickened wall gallbladder. There was also adhesions around the trocar site at the umbilicus, which were removed and adhesions up around the gallbladder. It took about 15 minutes to remove adhesions. ANESTHESIA: General anesthetic. ESTIMATED BLOOD LOSS: 50 mL. DESCRIPTION OF PROCEDURE: The patient was taken to the operating room and placed in a supine position, connected to monitoring equipment, given a general anesthetic and intubated. SCDs were placed. Antibiotics were given. The abdomen was clipped and prepped with chlorhexidine prep with alcohol and draped off in a sterile fashion. Incision was made just below the umbilicus using a 5 mm Optiport. Abdominal cavity was entered and pneumoperitoneum established. Camera was inserted showing that we were in some adhesions, but no small bowel was noted in the area. A 5 mm trocar was placed above that and one could see the adhesions and adhesions near the gallbladder of the omentum. A 10 mm trocar was then placed in the epigastric position, and using a LigaSure, the adhesions that were noted were then taken down and the area checked and no small bowel was near the area of the epigastric port. The port above the umbilicus was then removed and the skin closed with subdermal 4-0 Dexon suture and a 5 mm port placed in right upper quadrant and one in the right lateral quadrant of the abdomen. The patient was placed in reverse Trendelenburg with a leftward tilt. The adhesions were taken off the fundus of the gallbladder and then the gallbladder was aspirated. There was clear fluid in the gallbladder. This allowed grasping of the gallbladder and retraction in a cephalad position. Amira pouch was further dissected off the duodenum and the surrounding omentum. Calot's triangle was then dissected out showing cystic duct, Amira pouch, and the cystic plate. Cystic artery was not identified at this time, although it was felt to be aberrant and coming around to the lateral edge of the gallbladder. Cholangiogram was then performed using contrast material diluted with equal parts of saline and the C-arm, and this showed free flow of dye into the duodenum, slightly dilated duct, and right and left hepatic ducts were noted. The cystic duct was then clipped, cut, and then an 0 PDS Endoloop placed on the cystic duct and the gallbladder was then dissected from its attachments to the liver. There were dense adhesions around the cystic artery, and using multiple clips, these were eventually secured, numerous branches ramifying onto the gallbladder. The gallbladder was then dissected from its attachment to the liver and placed in an Endobag and removed from the abdominal cavity through the epigastric port by enlarging this. This was then closed with a running 0 PDS. The area was then checked and bleeding points in the gallbladder bed was then controlled with electrocautery, suture ligature. The area was irrigated and it was all observed for a period of time and no bleeding was noted. There was noted some bleeding from the subumbilical port and this was enlarged and bleeding points found to be in the subcu and controlled with electrocautery. The soft tissues were then closed with Vicryl suture after the pneumoperitoneum ports were removed and the skin of each port closed with subdermal 4-0 Dexon sutures. 1% Xylocaine and 0.5% Marcaine instilled in the skin of each port and they were closed with Steri-Strips and sterile dressing. The patient tolerated the procedure and sent to recovery room in a stable condition. WILLIE /[id number]
--- NOTE | 2017-12-23 08:46 | PCM48HPAN ---
Post Anesthesia Note - EVALUATION WITHIN 48HRS OF ANESTHETIC Vital Signs in Normal Range: Yes Patient Participated in Evaluation: Yes Respiratory Function Stable: Yes Airway Patent: Yes Cardiovascular Function Stable: Yes Hydration Status Stable: Yes Pain Control Satisfactory: Yes Nausea and Vomiting Control Satisfactory: Yes Mental Status Recovered: Yes
--- NOTE | 2017-12-23 09:56 | PCM.SURGPN ---
- General Info Date of Service: 12/23/17 - Patient Data Vitals - Most Recent: Last Vital Signs Temp 99.3 F 12/23/17 03:58 Pulse 89 12/23/17 03:58 Resp 14 12/23/17 03:58 BP 93/60 12/23/17 03:58 Pulse Ox 97 12/23/17 03:58 Weight - Most Recent: 69.763 kg I&O - Last 24 Hours: Intake & Output 12/22/17 12/23/17 12/23/17 23:59 07:59 15:59 Intake Total 600 2000 Output Total 800 1000 Balance -200 1000 Med Orders - Current: Current Medications Hydrocodone Bitart/Acetaminophen ([place] 325-5 Mg) 1 tab PO Q6H PRN PRN Reason: Pain Last Admin: 12/23/17 09:16 Dose: 1 tab Lactated Ringer's (Ringers, Lactated) 1,000 mls @ 75 mls/hr IV ASDIRECTED [facility] Last Admin: 12/22/17 21:30 Dose: 75 mls/hr Ketorolac Tromethamine (Toradol) 30 mg IVPUSH Q6H PRN PRN Reason: Pain Last Admin: 12/23/17 06:11 Dose: 30 mg Miscellaneous Information (Remove Patch) 0 ea TRDERM DAILY [facility] Last Admin: 12/23/17 09:17 Dose: Not Given Ondansetron HCl (Zofran) 4 mg IVPUSH Q8H PRN PRN Reason: Nausea Discontinued Medications Hydrocodone Bitart/Acetaminophen ([place] 325-5 Mg) 1 tab PO Q6H PRN PRN Reason: Pain Bupivacaine HCl (Marcaine 0.5%) Confirm Administered Dose 30 ml .ROUTE .STK-MED ONE Stop: 12/22/17 10:45 Last Admin: 12/22/17 13:45 Dose: 22 ml Cefazolin Sodium (Ancef) Confirm Administered Dose 2 gm .ROUTE .STK-MED ONE Stop: 12/22/17 13:55 Dexamethasone (Dexamethasone) Confirm Administered Dose 20 mg .ROUTE .STK-MED ONE Stop: 12/22/17 13:17 Fentanyl (Sublimaze) Confirm Administered Dose 250 mcg .ROUTE .STK-MED ONE Stop: 12/22/17 13:17 Fentanyl (Sublimaze) 50 mcg IVPUSH Q5M PRN PRN Reason: Pain Glycopyrrolate () Confirm Administered Dose 1 mg .ROUTE .STK-MED ONE Stop: 12/22/17 15:29 Hydromorphone HCl (Dilaudid) 1 mg IVPUSH ONETIME ONE Stop: 12/21/17 19:09 Last Admin: 12/21/17 19:16 Dose: 1 mg Hydromorphone HCl (Dilaudid) 1 mg IVPUSH Q1H PRN PRN Reason: Pain Last Admin: 12/22/17 10:09 Dose: 1 mg Hydromorphone HCl (Dilaudid) Confirm Administered Dose 1 mg .ROUTE .STK-MED ONE Stop: 12/21/17 20:40 Last Admin: 12/21/17 21:54 Dose: Not Given Hydromorphone HCl (Dilaudid) Confirm Administered Dose 1 mg .ROUTE .STK-MED ONE Stop: 12/22/17 13:58 Sodium Chloride (Normal Saline) 1,000 mls @ 150 mls/hr IV ASDIRECTED [facility] Last Admin: 12/22/17 09:21 Dose: 150 mls/hr Lidocaine HCl (Xylocaine-Mpf 1%) Confirm Administered Dose 4 mls @ as directed .ROUTE .STK-MED ONE Stop: 12/22/17 13:17 Lactated Ringer's (Ringers, Lactated) Confirm Administered Dose 1,000 mls @ as directed .ROUTE .STK-MED ONE Stop: 12/22/17 13:20 Lactated Ringer's (Ringers, Lactated) Confirm Administered Dose 1,000 mls @ as directed .ROUTE .STK-MED ONE Stop: 12/22/17 15:27 Iopamidol (Isovue-300 (61%)) Confirm Administered Dose 50 ml .ROUTE .STK-MED ONE Stop: 12/22/17 10:44 Last Admin: 12/22/17 14:38 Dose: 12 ml Ketamine HCl (Ketalar) Confirm Administered Dose 500 mg .ROUTE .STK-MED ONE Stop: 12/22/17 13:57 Ketorolac Tromethamine (Toradol) Confirm Administered Dose 30 mg .ROUTE .STK- MED ONE Stop: 12/22/17 15:54 Ketorolac Tromethamine (Toradol) 30 mg IVPUSH Q6H PRN PRN Reason: Nausea Meperidine HCl (Demerol) 12.5 mg IVPUSH ONETIME PRN PRN Reason: shivering Last Admin: 12/22/17 16:04 Dose: 12.5 mg Meperidine HCl (Demerol) Confirm Administered Dose 50 mg .ROUTE .[facility]-MED ONE Stop: 12/22/17 15:54 Last Admin: 12/22/17 17:27 Dose: Not Given Metoclopramide HCl (Reglan) Confirm Administered Dose 10 mg .ROUTE .[facility]MED ONE Stop: 12/22/17 15:54 Midazolam HCl (Versed 1 Mg/Ml) Confirm Administered Dose 2 mg .ROUTE .[facility]MED ONE Stop: 12/22/17 13:17 Neostigmine Methylsulfate (Neostigmine) Confirm Administered Dose 5 mg .ROUTE .[facility] ONE Stop: 12/22/17 15:29 Nicotine (Habitrol) 21 mg TRDERM DAILY [facility] Last Admin: 12/22/17 09:08 Dose: 21 mg Ondansetron HCl (Zofran) 4 mg IVPUSH ONETIME ONE Stop: 12/21/17 19:09 Last Admin: 12/21/17 19:15 Dose: 4 mg Ondansetron HCl (Zofran) 4 mg IVPUSH Q4HR PRN PRN Reason: Nausea/Vomiting Last Admin: 12/22/17 10:05 Dose: 4 mg Ondansetron HCl (Zofran) Confirm Administered Dose 4 mg .ROUTE .[facility] ONE Stop: 12/22/17 13:17 Ondansetron HCl (Zofran) 4 mg IVPUSH ONETIME PRN PRN Reason: Nausea/Vomiting Ondansetron HCl (Zofran) 4 mg IVPUSH Q8H PRN PRN Reason: Nausea Propofol (Diprivan 20 Ml) Confirm Administered Dose 200 mg .ROUTE .[facility] ONE Stop: 12/22/17 13:17 Rocuronium [place] (Zemuron) Confirm Administered Dose 50 mg .ROUTE .[facility] ONE Stop: 12/22/17 13:17 Sodium Chloride (Normal Saline) Confirm Administered Dose 100 ml .ROUTE .[facility] ONE Stop: 12/22/17 10:45 Last Admin: 12/22/17 14:38 Dose: 6 ml - Problem List Review Problem List Initiated/Reviewed/Updated: Yes - My Orders Last 24 Hours: Active Orders 24 hr Category Date Time Status Patient Status [ADT] Stat ADT 12/22/17 15:55 Active Ambulate [RC] PER UNIT ROUTINE Care 12/22/17 17:10 Active Oxygen Therapy [RC] ASDIRECTED Care 12/22/17 15:02 Active Pulse Oximetry [RC] ASDIRECTED Care 12/22/17 15:02 Active Turn, Cough, Deep Breathe [RC] .PRN Care 12/22/17 17:10 Active Clear Liquid Diet [DIET] Diet 12/22/17 Dinner Active Acetaminophen/HYDROcodone [[place] 325-5 MG] Med 12/22/17 17:10 Active 1 tab PO Q6H PRN Ketorolac [Toradol] Med 12/22/17 17:10 Active 30 mg IVPUSH Q6H PRN Lactated Ringers [Ringers, Lactated] 1,000 ml Med 12/22/17 17:10 Active IV ASDIRECTED Ondansetron [Zofran] Med 12/22/17 17:10 Active 4 mg IVPUSH Q8H PRN Remove Patch Med 12/23/17 09:00 Active 0 ea TRDERM DAILY Schedule Procedure [COMM] Routine Oth 12/22/17 12:13 Ordered Medication Orders Hydrocodone Bitart/Acetaminophen ([place] 325-5 Mg) 1 tab PO Q6H PRN PRN Reason: Pain Last Admin: 12/23/17 09:16 Dose: 1 tab Admin: 12/23/17 01:53 Dose: 1 tab Admin: 12/22/17 18:48 Dose: 1 tab Lactated Ringer's (Ringers, Lactated) 1,000 mls @ 75 mls/hr IV ASDIRECTED [facility] Last Admin: 12/22/17 21:30 Dose: 75 mls/hr Ketorolac Tromethamine (Toradol) 30 mg IVPUSH Q6H PRN PRN Reason: Pain Last Admin: 12/23/17 06:11 Dose: 30 mg Admin: 12/23/17 00:11 Dose: 30 mg Admin: 12/22/17 18:49 Dose: 30 mg Miscellaneous Information (Remove Patch) 0 ea TRDERM DAILY [facility] Last Admin: 12/23/17 09:17 Dose: Ondansetron HCl (Zofran) 4 mg IVPUSH Q8H PRN PRN Reason: Nausea - Plan Plan (Free Text/Narrative):: discharge dictated ELIZABETH
--- NOTE | 2017-12-24 04:39 | DISCH ---
ADMISSION DATE: 12/21/2017 DISCHARGE DATE: 12/23/2017 This is a 42-year-old who was seen in the clinic with symptomatic cholelithiasis and scheduled for surgery. However, she came back with severe pain in the right upper quadrant and because of the pain was admitted to the hospital that day for surgery the following day. The patient has had an ultrasound and initially diagnosed in [place] in 2017 showing gallstones. The patient has put off the surgery until now. PHYSICAL EXAMINATION: GENERAL: At the time of admission showed alert, cooperative female. EYES: Sclerae white. Extraocular muscle motion normal. ORAL CAVITY: Healthy. NECK: Supple. LUNGS: Clear. HEART: Tones regular rate. ABDOMEN: Showed mild tenderness to right upper quadrant. HOSPITAL COURSE: The patient was admitted to the floor and given IV pain medications, made n.p.o. and brought to the operating room the following day where antibiotics were given. She underwent laparoscopic cholecystectomy and intraoperative cholangiogram. The intraoperative cholangiogram was normal. The patient was suffering from hydrops of the gallbladder and cholecystitis. Laparoscopic cholecystectomy was completed along with lysis of adhesions. The patient's postoperative course was one of resolution of the pain. She was up and ambulating. Her diet returned and she had reached maximum hospital benefit the following day. IV fluids were discontinued. She was discharged on a regular diet. No work for 2 weeks. No pushing, shoving, or pulling. She is discharged on medications of hydrocodone with Tylenol 1 p.o. q.i.d. p.r.n. pain and discharged for followup in the clinic in 1 week. DISCHARGE DIAGNOSES: Acute cholecystitis, cholelithiasis, and hydrops of the gallbladder, status post laparoscopic cholecystectomy and intraoperative cholangiogram. CONDITION ON DISCHARGE: Improved. FINAL DIAGNOSIS: DISCHARGE MEDICATIONS: DIET: ACTIVITY: FOLLOW-UP: MMODAL /[id number]
== END 2017-12-23 11:25 | disposition home or self-care (01) | DRG 419 ==
LOC: JD.ED 18:42 → JD.MS 19:36
PROVIDERS: ADMIT Surgery; ATTEND Surgery
PROC: 0FT44ZZ Resection of Gallbladder, Percutaneous Endoscopic Approach (ICD-10-PCS; principal; 2017-12-22)
DX: K80.00 Calculus of gallbladder with acute cholecystitis without obstruction (principal); K21.9 Gastro-esophageal reflux disease without esophagitis; F17.210 Nicotine dependence, cigarettes, uncomplicated
CPT/HCPCS: 36415; 74300; 74300-26; 80053; 85025; 96361; 96374; 96375; 99284; 99285-25; A9270-GY; J0690; J1100; J1170; J1885; J2175; J2250; J2405; J2704; J2710; J2765; J3010; J7040; J7120; Q9967

== ENCOUNTER 2019-11-25 12:35 | Emergency (ER) | payer BC ==
--- NOTE | 2019-11-25 13:19 | EDM.PDOC ---
ED HPI GENERAL MEDICAL PROBLEM - General Chief Complaint: ENT Problem Stated Complaint: DENTAL COMPLAINT Time Seen by Provider: 11/25/19 12:49 Source of Information: Reports: Patient, RN Notes Reviewed - History of Present Illness INITIAL COMMENTS - FREE TEXT/NARRATIVE: 44-year-old female comes in with right-sided lower jaw dental pain. Said onset of this about 2-1/2 weeks ago. Just finished a course of antibiotics about 2 days ago. She thinks it was "cephalexin". She states that the swelling of her jaw improved but never did go down completely. Running get worse and also the pain is once again getting worse. No fever. She states that a filling fractured off with that tooth several weeks ago and that is when her symptoms started. Right Lower Jaw Pain Score (Numeric/FACES): 10 - Related Data Allergies Allergy/AdvReac Type Severity Reaction Status Date / Time No Known Allergies Allergy Verified 11/25/19 12:52 Home Meds: Home Meds Acetaminophen/HYDROcodone [[place] 325-5 MG] 1 tab PO Q6H PRN #14 tablet 11/25/19 [Rx] Clindamycin HCl [Cleocin HCl] 300 mg PO Q8HR #30 capsule 11/25/19 [Rx] Past Medical History Cardiovascular History: Reports: None Respiratory History: Reports: None Gastrointestinal History: Reports: Cholelithiasis Oncologic (Cancer) History: Reports: None - Past Surgical History HEENT Surgical History: Reports: Oral Surgery GI Surgical History: Reports: Appendectomy, Cholecystectomy Female Surgical History: Reports: Tubal Ligation Social & Family History - Family History Family Medical History: Noncontributory - Tobacco Use Smoking Status *Q: Unknown Ever Smoked - Caffeine Use Caffeine Use: Reports: None - Living Situation & Occupation Living situation: Reports: , with Spouse, with Family (2 kids) Occupation: Employed ([employer]) ED ROS ENT - Review of Systems Review Of Systems: See Below Constitutional: Reports: Chills (Occasional). Denies: Fever HEENT: Reports: Dental Pain Respiratory: Reports: No Symptoms Cardiovascular: Reports: No Symptoms GI/Abdominal: Reports: No Symptoms Skin: Reports: No Symptoms Neurological: Reports: No Symptoms ED EXAM, ENT - Physical Exam Exam: See Below General Appearance: Alert, Mild Distress Mouth/Throat: Dental Pain (There is tenderness of the right lower first premolar and very mild swelling of the go gum, no drainage) Head: Facial Swelling (Very minimal swelling, moderate tenderness R lateral mid jaw) Neck: Supple. No: Lymphadenopathy (L), Lymphadenopathy (R) Respiratory/Chest: No Respiratory Distress, Lungs Clear Cardiovascular: Regular Rate, Rhythm Neurological: Alert, No Motor/Sensory Deficits Skin: Warm, Dry, Normal Color, No Rash. No: Erythema Course - Vital Signs Last Recorded V/S: Last Vital Signs Temp 97.5 F 11/25/19 12:49 Pulse 80 11/25/19 12:49 Resp 16 11/25/19 12:49 BP 125/75 11/25/19 12:49 Pulse Ox 100 11/25/19 12:49 Departure - Departure Time of Disposition: 13:15 Disposition: Home, Self-Care 01 Condition: Fair Clinical Impression: Dental infection - Discharge Information Prescriptions: Clindamycin HCl [Cleocin HCl] 300 mg PO Q8HR #30 capsule Acetaminophen/HYDROcodone [[place] 325-5 MG] 1 tab PO Q6H PRN #14 tablet PRN Reason: Pain Referrals: Gilma Jules MD [Primary Care Provider] - Forms: ED Department Discharge Additional Instructions: Clindamycin 300 mg 3 times daily for 10 days. You may continue to take Advil or ibuprofen 2-3 times daily with food. Take Tylenol in between doses for extra pain relief or hydrocodone if needed for severe pain. Do not take Tylenol and hydrocodone at the same time. Do not drive or work when taking hydrocodone. See dentist as soon as possible. Prescriptions have been sent electronically to [facility]. Sepsis Event Note - Evaluation Sepsis Screening Result: No Definite Risk - Focused Exam Vital Signs: Vital Signs Temp Pulse Resp BP Pulse Ox 11/25/19 12:49 97.5 F 80 16 125/75 100 Date Exam was Performed: 11/25/19 Time Exam was Performed: 13:20
== END 2019-11-25 13:40 | disposition home or self-care (01) ==
LOC: JD.ED 12:35
DX: K04.7 Periapical abscess without sinus (principal)
CPT/HCPCS: 99282; 99283

== ENCOUNTER 2019-11-26 09:18 | Emergency (ER) | payer BC ==
--- NOTE | 2019-11-26 10:39 | EDM.PDOC ---
ED HPI GENERAL MEDICAL PROBLEM - General Chief Complaint: ENT Problem Stated Complaint: DENTAL COMPLAINT Time Seen by Provider: 11/26/19 10:33 - History of Present Illness INITIAL COMMENTS - FREE TEXT/NARRATIVE: 44-year-old female returns emergency room with dental pain. Patient was seen here yesterday started on clindamycin and [place] for her dental pain. She's got right lower jaw dental pain started about 2 and half weeks ago she took one course of antibiotics will leave to be cephalexin. And then yesterday she was started on clindamycin and given some [place] one every 6 hours as needed. The pain medication is not working at this dose. She's using low- dose ibuprofen and Tylenol. Right Lower Tooth/Teeth Pain Score (Numeric/FACES): 10 - Related Data Allergies Allergy/AdvReac Type Severity Reaction Status Date / Time No Known Allergies Allergy Verified 11/25/19 12:52 Home Meds: Home Meds Acetaminophen/HYDROcodone [[place] 325-5 MG] 1 tab PO Q6H PRN #14 tablet 11/25/19 [Rx] Clindamycin HCl [Cleocin HCl] 300 mg PO Q8HR #30 capsule 11/25/19 [Rx] Hydrocodone/Acetaminophen [[place] 5-325 Tablet] 1 each PO Q6HR PRN #14 tablet [Rx] Acetaminophen/HYDROcodone [[place] 325-5 MG] 1 - 2 tab PO Q6H #7 tablet 11/26/19 [ Rx] Past Medical History Cardiovascular History: Reports: None Respiratory History: Reports: None Gastrointestinal History: Reports: Cholelithiasis Oncologic (Cancer) History: Reports: None - Past Surgical History HEENT Surgical History: Reports: Oral Surgery GI Surgical History: Reports: Appendectomy, Cholecystectomy Female Surgical History: Reports: Tubal Ligation Social & Family History - Family History Family Medical History: Noncontributory - Tobacco Use Smoking Status *Q: Current Every Day Smoker Years of Tobacco use: 20 Packs/Tins Daily: 0.5 - Caffeine Use Caffeine Use: Reports: None - Living Situation & Occupation Living situation: Reports: , with Spouse, with Family (2 kids) Occupation: Employed ([employer]) ED ROS ENT - Review of Systems Review Of Systems: See Below Constitutional: Reports: No Symptoms HEENT: Reports: Other (Right-sided dental pain with some facial swelling discomfort extending into her ear) Respiratory: Reports: No Symptoms Cardiovascular: Reports: No Symptoms GI/Abdominal: Reports: No Symptoms ED EXAM, ENT - Physical Exam Exam: See Below Exam Limited By: No Limitations General Appearance: Alert, Mild Distress (Him the discomfort) Eye Exam: Bilateral Eye: Normal Inspection Ears: Normal External Exam, Normal Canal, Hearing Grossly Normal, Normal TMs Nose: Normal Inspection, Normal Mucousa, No Blood Mouth/Throat: Normal Lips, Normal Oropharynx (Her teeth on the right side the last 3 or 4 it had multiple repairs fracture site identified filling missing.), Other Head: Other (Mild right-sided facial swelling) Neck: Normal Inspection, Lymphadenopathy (R). No: Limited Range of Motion, Tender Lateral, Tender Midline Respiratory/Chest: No Respiratory Distress, Lungs Clear, Normal Breath Sounds Cardiovascular: Regular Rate, Rhythm, No Edema, No Murmur Course - Vital Signs Last Recorded V/S: Last Vital Signs Temp 36.9 C 11/26/19 09:35 Pulse 92 11/26/19 09:35 Resp 16 11/26/19 09:35 BP 143/98 H 11/26/19 09:35 Pulse Ox 96 11/26/19 09:35 Departure - Departure Time of Disposition: 10:44 Disposition: Home, Self-Care 01 Clinical Impression: Dental infection, Dental caries extending into dentin - Discharge Information Prescriptions: Acetaminophen/HYDROcodone [[place] 325-5 MG] 1 - 2 tab PO Q6H #7 tablet Referrals: PCP,None [Primary Care Provider] - Forms: ED Department Discharge Additional Instructions: Return to the emergency room with any questions problems worsening symptoms. Your pain is going be present until the antibiotics kick in and ultimately until this dental work can be done. Use the ibuprofen 800 mg 3 times a day with meals. Use caution with the Tylenol, or acetaminophen, as the [place] contains Tylenol 325 mg per tablet. Do not take more than 4000 mg of Tylenol a 24-hour period. Follow-up with your dentist as scheduled. Sepsis Event Note - Evaluation Sepsis Screening Result: No Definite Risk - Focused Exam Vital Signs: Vital Signs Temp Pulse Resp BP Pulse Ox 11/26/19 09:35 36.9 C 92 16 143/98 H 96 Date Exam was Performed: 11/26/19 Time Exam was Performed: 10:40
== END 2019-11-26 10:59 | disposition home or self-care (01) ==
LOC: JD.ED 09:18
DX: K04.7 Periapical abscess without sinus (principal); K02.9 Dental caries, unspecified; F17.210 Nicotine dependence, cigarettes, uncomplicated
CPT/HCPCS: 99282; 99283

== ENCOUNTER 2020-04-11 10:44 | Emergency (ER) | payer BC ==
[2020-04-11] MEDS ORDERED: Sodium Chloride 0.9% 10 ML Syringe FLUSH PRN (11:11)
[2020-04-11] MEDS ORDERED: Ondansetron 4 MG/2 ML SDV IVPUSH ONE (11:11)
[2020-04-11] MEDS ORDERED: Pantoprazole 40 MG Vial IVPUSH ONE (11:12)
[2020-04-11] MEDS ORDERED: Sodium Chloride 0.9% 1,000 ML IV SCH (11:15)
--- NOTE | 2020-04-11 11:20 | EDM.PDOC ---
ED HPI GENERAL MEDICAL PROBLEM - General Chief Complaint: Gastrointestinal Problem Stated Complaint: VOMITING/ABSCESS TOOTH(FEELING PAIN) Time Seen by Provider: 04/11/20 11:06 Source of Information: Reports: Patient History Limitations: Reports: No Limitations ( ) - History of Present Illness INITIAL COMMENTS - FREE TEXT/NARRATIVE: Patient is a 44-year-old female who presents with complaints of epigastric pain and vomiting that started this morning. She has been on clindamycin for the last few days and tolerating it well. This morning when she took her dose of clindamycin, she also took a "energy pill "that her friend gave her and started vomiting thereafter. She is unsure what the pill that she took was. She does have a history of gastritis and gastric ulcers and has had an EGD done in the past, however she states it was so long ago that she cannot remember what they found. She has had small amounts of blood in her emesis after she had been vomiting for a while. She states that her initial emesis did not contain blood. Prior to this morning, she was feeling well. She denies any diarrhea, fever, or chills. Patient does occasionally drink alcohol. States her last time she drank was about 2 weeks ago. Abdomen Pain Score (Numeric/FACES): 8 - Related Data Allergies Allergy/AdvReac Type Severity Reaction Status Date / Time No Known Allergies Allergy Verified 04/11/20 10:58 Home Meds: Home Meds Hydrocodone/Acetaminophen [Thornton 5-325 Tablet] 1 each PO Q6HR PRN #14 tablet [Rx] clindamycin HCL [Cleocin HCl] 300 mg PO Q8HR #30 capsule 11/25/19 [Rx] Ondansetron [Zofran] 4 mg PO Q4H PRN #10 tab 04/11/20 [Rx] Pantoprazole Sodium [Protonix] 40 mg PO DAILY #10 tablet. 04/11/20 [Rx] Past Medical History Cardiovascular History: Reports: None Respiratory History: Reports: None Gastrointestinal History: Reports: Cholelithiasis Oncologic (Cancer) History: Reports: None - Past Surgical History HEENT Surgical History: Reports: Oral Surgery GI Surgical History: Reports: Appendectomy, Cholecystectomy Female Surgical History: Reports: Tubal Ligation Social & Family History - Family History Family Medical History: Noncontributory - Tobacco Use Smoking Status *Q: Current Every Day Smoker Years of Tobacco use: 20 Packs/Tins Daily: 1 - Caffeine Use Caffeine Use: Reports: None - Living Situation & Occupation Living situation: Reports: , with Spouse, with Family (2 kids) Occupation: Employed ([employer]) ED ROS GENERAL - Review of Systems Review Of Systems: Comprehensive ROS is negative, except as noted in HPI. ED EXAM, GI/ABD - Physical Exam Exam: See Below Exam Limited By: No Limitations General Appearance: Alert, WD/WN, Mild Distress, Active Emesis Respiratory/Chest: No Respiratory Distress, Lungs Clear, Normal Breath Sounds, No Accessory Muscle Use, Chest Non-Tender Cardiovascular: Normal Peripheral Pulses, Regular Rate, Rhythm, No Edema, No Gallop, No JVD, No Murmur, No Rub GI/Abdominal Exam: Normal Bowel Sounds, Soft, No Organomegaly, No Distention, No Abnormal Bruit, No Mass, Pelvis Stable, Tender (Epigastric) Neurological: Alert, Oriented, CN II-XII Intact, Normal Cognition, Normal Gait, Normal Reflexes, No Motor/Sensory Deficits Psychiatric: Normal Affect, Normal Mood Skin Exam: Warm, Dry, Intact, Normal Color, No Rash Course - Vital Signs Last Recorded V/S: Last Vital Signs Temp 97.8 F 04/11/20 10:55 Pulse 89 04/11/20 10:55 Resp 16 04/11/20 10:55 BP 122/96 H 04/11/20 10:55 Pulse Ox 98 04/11/20 10:55 - Orders/Labs/Meds Orders: Active Orders 24 hr Category Date Time Status Peripheral IV Care [RC] . DIRECTED Care 04/11/20 11:11 Active Sodium Chloride 0.9% [Normal Saline] 1,000 ml Med 04/11/20 11:15 Active IV ASDIRECTED Sodium Chloride 0.9% [Saline Flush] Med 04/11/20 11:11 Active 10 ml FLUSH ASDIRECTED PRN Peripheral IV Insertion Adult [OM.PC] Stat Oth 04/11/20 11:11 Ordered Medication Orders Sodium Chloride (Normal Saline) 1,000 mls @ 999 mls/hr IV ASDIRECTED CARLA Last Admin: 04/11/20 11:36 Dose: 999 mls/hr Sodium Chloride (Saline Flush) 10 ml FLUSH ASDIRECTED PRN PRN Reason: Keep Vein Open Last Admin: 04/11/20 11:37 Dose: 10 ml Labs: Laboratory Tests 04/11/20 04/11/20 Range/Units 11:53 11:53 WBC 8.23 (3.98-10.04) K/mm3 RBC 4.84 (3.98-5.22) M/mm3 Hgb 14.0 (11.2-15.7) gm/dl Hct 42.3 (34.1-44.9) % MCV 87.4 (79.4-94.8) fl MCH 28.9 (25.6-32.2) pg MCHC 33.1 (32.2-35.5) g/dl RDW Std Deviation 43.4 (36.4-46.3) fL Plt Count 278 (182-369) K/mm3 MPV 10.7 (9.4-12.3) fl Neut % (Auto) 75.3 H (34.0-71.1) % Lymph % (Auto) 19.6 (19.3-51.7) % [place] % (Auto) 4.6 L (4.7-12.5) % Eos % (Auto) 0.1 L (0.7-5.8) Baso % (Auto) 0.2 (0.1-1.2) % Neut # (Auto) 6.19 H (1.56-6.13) K/mm3 Lymph # (Auto) 1.61 (1.18-3.74) K/mm3 [place] # (Auto) 0.38 H (0.24-0.36) K/mm3 Eos # (Auto) 0.01 L (0.04-0.36) K/mm3 Baso # (Auto) 0.02 (0.01-0.08) K/mm3 Sodium 139 (136-145) mEq/L Potassium 4.1 (3.5-5.1) mEq/L Chloride 102 (98-107) mEq/L Carbon Dioxide 27 (21-32) mEq/L Anion Gap 14.1 (5-15) BUN 12 (7-18) mg/dL Creatinine 0.8 (0.55-1.02) mg/dL Est Cr Clr Drug Dosing 82.43 mL/min Estimated GFR (MDRD) > 60 (>60) mL/min BUN/Creatinine Ratio 15.0 (14-18) Glucose 115 H (74-106) mg/dL Calcium 9.7 (8.5-10.1) mg/dL Total Bilirubin 0.3 (0.2-1.0) mg/dL AST 21 (15-37) U/L ALT 26 (14-59) U/L Alkaline Phosphatase 50 (46-116) U/L C-Reactive Protein 0.6 (<1.0) mg/dL Total Protein 8.2 (6.4-8.2) g/dl Albumin 3.7 (3.4-5.0) g/dl Globulin 4.5 gm/dL Albumin/Globulin Ratio 0.8 L (1-2) Lipase 90 (73-393) U/L Meds: Medications Generic Name Dose Route Start Last Admin Trade Name Freq PRN Reason Stop Dose Admin Sodium Chloride 1,000 mls @ 999 mls/hr 04/11/20 11:15 04/11/20 11:36 Normal Saline IV 999 mls/hr ASDIRECTED CARLA Administration Sodium Chloride 10 ml 04/11/20 11:11 04/11/20 11:37 Saline Flush FLUSH 10 ml ASDIRECTED PRN Administration Keep Vein Open Discontinued Medications Generic Name Dose Route Start Last Admin Trade Name Freq PRN Reason Stop Dose Admin Diphenhydramine HCl 25 mg 04/11/20 12:34 04/11/20 12:48 Benadryl IVPUSH 04/11/20 12:35 25 mg ONETIME ONE Administration Metoclopramide HCl 7.5 mg 04/11/20 12:09 04/11/20 12:20 Reglan IVPUSH 04/11/20 12:10 7.5 mg ONETIME ONE Administration Ondansetron HCl 4 mg 04/11/20 11:11 04/11/20 11:36 Zofran IVPUSH 04/11/20 11:12 4 mg ONETIME ONE Administration Pantoprazole Sodium 80 mg 04/11/20 11:12 04/11/20 11:36 Protonix Iv IVPUSH 04/11/20 11:13 80 mg BOLUS ONE Administration - Re-Assessments/Exams Free Text/Narrative Re-Assessment/Exam: I have ordered a CBC, CMP, lipase. We will give her a liter of IV fluids, Zofran for nausea, and Protonix 80 mg IV. 04/11/20 1210 Patient continues to have vomiting and dry heaving after the Zofran. I ordered Reglan 7.5 mg IV. 04/11/20 1235 Patient still has vomiting and dry heaving. I have ordered Benadryl 25 mg IV be given now. 04/11/20 13:54 Patient symptoms have improved significantly. She has had no further vomiting. Through discussion, she stated that her first emesis she had this morning was not bloody. After having numerous emesis, she developed blood in her vomit. She is sipping on water now. If she is able to drink water without significant discomfort, we will discharge her home with a prescription for Protonix and Zofran. 04/11/20 14:07 Patient has been drinking water without difficulty. She has had no further emesis. We will discharge her home with a prescription for Protonix and Zofran. Recommend that she follow-up with her primary care provider next week. Discharge instructions as documented. Departure - Departure Time of Disposition: 14:07 Disposition: Home, Self-Care 01 Condition: Good Clinical Impression: Nausea & vomiting Qualifiers: Vomiting type: unspecified Vomiting Intractability: unspecified Qualified Code( s): R11.2 - Nausea with vomiting, unspecified - Discharge Information *PRESCRIPTION DRUG MONITORING PROGRAM REVIEWED*: No *COPY OF PRESCRIPTION DRUG MONITORING REPORT IN PATIENT HAILY: No Prescriptions: Ondansetron [Zofran] 4 mg PO Q4H PRN #10 tab PRN Reason: Nausea/Vomiting Pantoprazole Sodium [Protonix] 40 mg PO DAILY #10 tablet. Instructions: Nausea and Vomiting, Adult, [id number] Referrals: Siri Bernstein PA-C [Ordering Only Provider] - Forms: ED Department Discharge Additional Instructions: You were seen in the emergency department today for epigastric pain, nausea, and vomiting after taking a "energy pill "with your antibiotic. Blood work was completed the ER and found to be normal. While in the ER you received a liter of IV fluids, Protonix through your IV, and nausea medications which did resolve your symptoms. A prescription for Protonix and Zofran has been sent to [facility]. Take these medications as prescribed. Avoid the whole, spicy, greasy, or acidic foods as this will aggravate your stomach further. Recommend that you call to schedule a follow-up appointment with your primary care provider for early next week for ongoing management. If you should develop worsening symptoms or began to vomit a significant amount of blood, please return to the emergency department. Sepsis Event Note - Evaluation Sepsis Screening Result: No Definite Risk - Focused Exam Vital Signs: Vital Signs Temp Pulse Resp BP Pulse Ox 04/11/20 10:55 97.8 F 89 16 122/96 H 98 Date Exam was Performed: 04/11/20 Time Exam was Performed: 14:13 - My Orders Last 24 Hours: My Active Orders 04/11/20 11:11 Peripheral IV Care [RC] . DIRECTED Sodium Chloride 0.9% [Saline Flush] 10 ml FLUSH ASDIRECTED PRN Peripheral IV Insertion Adult [OM.PC] Stat 04/11/20 11:15 Sodium Chloride 0.9% [Normal Saline] 1,000 ml IV ASDIRECTED - Assessment/Plan Last 24 Hours: My Active Orders 04/11/20 11:11 Peripheral IV Care [RC] . DIRECTED Sodium Chloride 0.9% [Saline Flush] 10 ml FLUSH ASDIRECTED PRN Peripheral IV Insertion Adult [OM.PC] Stat 04/11/20 11:15 Sodium Chloride 0.9% [Normal Saline] 1,000 ml IV ASDIRECTED
[2020-04-11] MEDS ORDERED: Metoclopramide 10 MG/2 ML SDV IVPUSH ONE (12:09)
[2020-04-11] MEDS ORDERED: diphenhydrAMINE 50 MG/ML SDV IVPUSH ONE (12:34)
== END 2020-04-11 14:36 | disposition home or self-care (01) ==
LOC: JD.ED 10:44
DX: R11.2 Nausea with vomiting, unspecified (principal); F17.210 Nicotine dependence, cigarettes, uncomplicated
CPT/HCPCS: 36415; 80053; 83690; 85025; 86140; 96361; 96374; 96375; 99284; C9113; J1200; J2405; J2765; J7030

== ENCOUNTER 2025-10-16 10:14 | Emergency (ER) | payer BC ==
[2025-10-16] MEDS ORDERED: Sodium Chloride 0.9% 10 ML Syringe FLUSH PRN (10:21)
[2025-10-16 10:49] LABS: BASOPHILS ABSOLUTE AUTO 0.0 K/mm3 (0.0-0.2); BASOPHILS PERCENT AUTO 0.7 % (0.0-1.0); EOSINOPHILS ABSOLUTE AUTO 0.3 K/mm3 (0.0-0.4); EOSINOPHILS PERCENT AUTO 4.5 % (0.0-6.0); IMMATURE GRAN ABSOLUTE AUTO 0.01 K/mm3 (0.00-0.05); IMMATURE GRAN PERCENT AUTO 0.2 % (0.0-0.4); LYMPHOCYTES ABSOLUTE AUTO 2.5 K/mm3 (1.0-4.8); LYMPHOCYTES PERCENT AUTO 42.0 % (24.0-44.0); MEAN PLATELET VOLUME 10.2 fl (9.4-12.3); MONOCYTES ABSOLUTE AUTO 0.5 K/mm3 (0.0-0.8); MONOCYTES PERCENT AUTO 8.9 % (0.0-8.0); NEUTROPHILS ABSOLUTE AUTO 2.6 K/mm3 (1.8-7.7); NEUTROPHILS PERCENT AUTO 43.7 % (41.0-71.0); NRBC ABSOLUTE 0.00 (0.00-0.02); NRBC PERCENT 0.0 % (0.0-0.2); PLATELET COUNT,PLT 309 K/mm3 (150-400); RED BLOOD CELL COUNT 4.44 M/mm3 (4.10-5.30); WHITE BLOOD CELL COUNT,WBC 5.97 K/mm3 (3.9-11.3)
[2025-10-16 11:09] LABS: APPEARANCE,URINE CLEAR (Clear); GLUCOSE,URINE NEGATIVE (Negative); OCCULT BLOOD,URINE NEGATIVE (Negative)
[2025-10-16 11:12] LABS: A/G RATIO 0.8 (1-2); ALANINE AMINOTRANSFERASE,ALT 30.0 U/L (14-59); ASPARTATE AMNIOTRANSFERASE,AST 17.0 U/L (15-37); BILIRUBIN TOTAL 0.4 mg/dL (0.2-1.0); BLOOD UREA NITROGEN,BUN 13.0 mg/dL (7-18); CARBON DIOXIDE,CO2 26.0 mEq/L (21-32); CHLORIDE,CL 107.0 mEq/L (98-107); CREATININE 0.7 mg/dL (0.55-1.02); EST CRCL DRUG DOSING (CG) 88.44 mL/min; ESTIMATED GFR 107.0 mL/min (>60); GLUCOSE RANDOM 101.0 mg/dL (70-99); POTASSIUM,K 3.9 mEq/L (3.5-5.1); PROTEIN TOTAL,TP 7.3 g/dl (6.4-8.2); SODIUM,NA 141.0 mEq/L (136-145)
[2025-10-16] MEDS: Ketorolac 30 MG/ML SDV IVPUSH ONE (12:55)
== END 2025-10-16 13:10 | disposition home or self-care (01) ==
LOC: JD.ED 10:14
DX: R09.1 Pleurisy (principal); Z79.899 Other long term (current) drug therapy; Z90.49 Acquired absence of other specified parts of digestive tract
CPT/HCPCS: 36415; 71045; 80053; 81003; 85025; 85379; 93005; 96374; 99285; J1885; 93010; 99284